=== PATIENT | female | born 1965 | race Caucasian/White ===

== ENCOUNTER → 2016-09-25 | Outpatient (CLI) | payer BC ==
[~2016-09-25] MED LIST: FEXO30TA7 PO
== END ==
LOC: WC.BC 15:56
DX: Z12.31 Encounter for screening mammogram for malignant neoplasm of breast (principal); C50.911 Malignant neoplasm of unspecified site of right female breast; N64.59 Other signs and symptoms in breast; N64.89 Other specified disorders of breast; Z98.890 Other specified postprocedural states
CPT/HCPCS: 77063; G0202